=== PATIENT | female | born 1975 | race Caucasian/White ===

== ENCOUNTER 2022-05-31 14:48 | Observation (INO) | payer BC, SELFPAY ==
[2022-05-31] VITALS (20 sets, daily range): BP systolic 140–180; BP diastolic 77–97; PULSE 78–87; RESP 17–18; TEMP 37.1–37.4; O2SAT 95–100; BMI 30.4
--- NOTE | ~2022-05-31 | CT_ITS ---
EXAMINATION: CT abdomen pelvis w con DATE: 05/31/2022 16:38 INDICATION: RUQ Pain X 2 hrs, N/V TECHNIQUE: Computed tomography (CT) of the abdomen and pelvis was performed with 100 mL Omnipaque-350 intravenous contrast. Automated exposure control and iterative reconstruction technique were employe d. The dose-length product was 975.14 mGy-cm. COMPARISON: None. FINDINGS: Lower thorax: Unremarkable Liver: Enlarged. Diffusely fatty infiltrated. Biliary/Gallbladder: Gallbladder is normal. No bile duct dilation. Pancreas: No mass or duct dilation. Spleen: Normal. Adrenals:No mass. Kidneys: No suspicious mass or stone. Minimal bilateral ureterectasis. GI tract: No small or large bowel dilation. Appendicolith in the proximal appendix. The appendix is d ilated to 11 mm. Appendiceal wall is intact. Minimal periappendiceal inflammatory change. Mesentery/Peritoneum: No ascites, mass, or free air. Retroperitoneum: No mass. Pelvis: Mild bladder wall thickening, given the degree of distention. Small incidental bilateral ovar marely cysts. Normal uterus. Trace free pelvic fluid, in physiologic range. Soft Tissues: Soft tissues and body wall unremarkable. Bones: No acute osseous finding. IMPRESSION: CT findings likely represent early/mild acute appendicitis. Mild urinary bladder wall thickening and mild bilateral ureterectasis, may represent some degree of urinary retention. Correlate for findings of cystitis. Ascending infection is not excluded. Hepatomegaly and steatosis. Reviewed, dictated and finalized at location K. OMATIC INTERPRETER IMPRESSION: CT findings likely represent early/mild acute appendicitis. Mild urinary bladde r wall thickening and mild bilateral ureterectasis, may represent some degree o f urinary retention. Correlate for findings of cystitis. Ascending infection is not excluded. Hepatomegaly and steatosis.
[2022-05-31 15:37] LABS: Basophils Absolute Auto 0.1 K/mm3 (0.0-0.1); Basophils Percent Auto 0.5 % (0.2-1.2); Eosinophils Absolute Auto 0.1 K/mm3 (0-0.3); Eosinophils Percent Auto 0.4 % (0-4.4); Hematocrit 43.7 % (37.0-47.0); Hemoglobin 15.1 g/dL (12.0-15.0); Immature Granulocyte Absolute 0.06 K/mm3 (0.00-0.031); Immature Granulocyte Percent A 0.4 % (0-0.5); Lymphocytes Absolute Auto 1.49 K/mm3 (0.9-3.2); Lymphocytes Percent Auto 9.8 % (18.3-44.2); Mean Corpuscular HGB Conc 34.6 g/dl (32-36); Mean Corpuscular Hemoglobin 31.4 pg (26-34); Mean Corpuscular Volume 90.9 fl (80-100); Mean Platelet Volume 9.1 fl (7.4-10.4); Monocytes Absolute Auto 0.6 K/mm3 (0.1-0.6); Monocytes Percent Auto 3.7 % (2.6-8.5); Neutrophils Absolute Auto 12.9 K/mm3 (1.3-6.7); Neutrophils Percent Auto 85.2 % (45.5-73.1); Platelet Count Result 299 k/mm3 (150-375); Red Blood Count 4.81 M/mm3 (4.2-5.4); Red Cell Distribution Width 11.9 % (11.5-14.5); White Blood Count 15.1 K/mm3 (4.5-10.0)
[2022-05-31 15:40] LABS: Appearance Urine Clear (Clear); Bilirubin Urine Negative (Negative); Blood Urine 1+ (Negative); Color Urine Yellow (Yellow); Glucose Urine UA Negative (Negative); Ketones Urine 2+ mg/dL (Negative); Leukocyte Esterase Ur Negative LEU/UL (Negative); Nitrate Urine Negative (Negative); Protein Urine Negative (Negative); Urobilinogen Urine 0.2 mg/dL (<2.0)
--- NOTE | 2022-05-31 15:45 | ED.ABDPAIN ---
HPI - Abdominal Pain General Chief Complaint: Abdominal Pain <JOSH Simpson Last Filed: 05/31/22 17:45> Stated Complaint: abd pain <JOSH Simpson Last Filed: 05/31/22 17:45> Time Seen by Provider: 05/31/22 14:50 <JOSH Simpson Last Filed: 05/31/22 17:45> Source: patient <JOSH Simpson Last Filed: 05/31/22 17:45> Mode of arrival: ambulatory <JOSH Simpson Last Filed: 05/31/22 17:45> Limitations: no limitations <JOSH Simpson Last Filed: 05/31/22 17:45> History of Present Illness HPI narrative: Patient is a 46-year-old female who presents the ED with report of right sided abdominal pain. Patient reports that pain began 2 and half hours ago. She ate eggs and cheese this morning. She reports nausea, denies vomiting, diarrhea, constipation, urinary sx's. Last BM this am. Denies fever. She has not taken anything for pain prior to arrival. She has never had pain like this before. <JOSH Simpson Last Filed: 05/31/22 17:45> Related Data Allergies/Adverse Reactions: Allergies Allergy/AdvReac Type Severity Reaction Status Date / Time No Known Allergies Allergy Mild Verified 05/31/22 15:03 <JOSH Simpson Last Filed: 05/31/22 17:45> Review of Systems Review of Systems: CONSTITUTIONAL: Denies fever, chills, or sweats. CARDIOVASCULAR: Denies chest pain. RESPIRATORY: Denies cough or dyspnea. GASTROINTESTINAL: Reports R sided ABD pain, nausea. Denies constipation, vomiting, or diarrhea. GENITOURINARY: Denies dysuria or hematuria. <JOSH Simpson Last Filed: 05/31/22 17:45> All systems reviewed & are unremarkable except as noted in HPI and below <JOSH Simpson Last Filed: 05/31/22 17:45> [facility] Past Medical History Medical History: Medical History (Updated 05/31/22 @ 17:45 by Lesli Maguire PA-C) No pertinent past medical history <Lesli Maguire PA-C - Last Filed: 05/31/22 17:45> Surgical History Surgical History: Surgical History (Updated 05/31/22 @ 15:52 by Lesli Maguire PA-C) No pertinent past surgical history <Lesli Maguire PA-C - Last Filed: 05/31/22 17:45> Social History Social History: Social History (Updated 05/31/22 @ 15:52 by Lesli Maguire PA-C) Smoking status: Never smoker <Lesli Maguire PA-C - Last Filed: 05/31/22 17:45> Exam Narrative: GENERAL: Well appearing, obese, non-toxic, in no acute distress. HEAD: Normocephalic, atraumatic. NECK: Supple. No adenopathy, no masses. RESPIRATORY: Airway patent, respirations nonlabored. Clear to auscultation bilaterally, no rales, rhonchi, wheezing. CARDIOVASCULAR: Regular rate and rhythm without murmurs, rubs, or gallops. Peripheral pulses 2+ and equal bilaterally. ABDOMINAL: Soft, tenderness palpation throughout right sided abdomen, RLQ and RUQ, nondistended, no hepatosplenomegaly. Normoactive BS. MUSCULOSKELETAL: Moves all extremities. Strength/ROM intact without gross deformities. SKIN: Warm, dry, normal color. No rashes. NEURO: A&O X3. Speech clear. Cranial nerves II-XII grossly intact. Steady gait. No ataxic movements. PSYCHIATRIC: Appropriate mood and affect. Normal interaction. <Lesli Maguire PA-C - Last Filed: 05/31/22 17:45> Course EMBOSSOGRAPH OPERATOR/PA Physician Supervision For this patient encounter, I reviewed the EMBOSSOGRAPH OPERATOR or PA documentation, treatment plan, and medical decision making; and I had [id number] time with this patient. <Gautam Berry MD - Last Filed: 05/31/22 17:38> Consultations Consultation #1: Discussed case with Dr. Raul, general surgery, will admit. Alejandra. <Lesli Maguire PA-C - Last Filed: 05/31/22 17:45> Date: 05/31/22 <Lesli Maguire PA-C - Last Filed: 05/31/22 17:45> Vital Signs Vital signs: Vital Signs Temperature 37.1 C 05/31/22 15:01
[2022-05-31 15:47] LABS: Alanine Aminotransferase 50 U/L (6-35); Albumin Level 4.9 g/dL (3.5-5.1); Alkaline Phosphatase 90 U/L (38-126); Anion Gap 9 mmol/L (8-16); Aspartate Amino Transferase 48 U/L (14-36); Bilirubin,Total 0.8 mg/dL (0.2-1.3); Blood Urea Nitrogen 9 mg/dL (7-17); Calcium 9.7 mg/dL (8.4-10.2); Carbon Dioxide 28 mmol/L (22-30); Chloride 98 mmol/L (98-107); Estimated CRCL calculation 100 ml/min; Estimated Glomerular Filt Rate > 60; Glucose 111 mg/dL (65-110); Lipase 58 U/L (23-300); Potassium 3.7 mmol/L (3.4-5.0); Sodium 135 mmol/L (137-145)
[2022-05-31 15:47] LABS: Bacteria Urine Trace /hpf; Mucus Urine Rare /lpf; Squamous Epithelial Cell Urine Rare /hpf (Few); WBC Urine 0-3 /hpf
[2022-05-31 15:49] LABS: Add Urine Microscopic? YES
[2022-05-31] MEDS: ONDANSETRON INJ 4 MG/2 ML VIAL IV PUSH (15:52)
[2022-05-31] MEDS: SODIUM CHLORIDE 0.9% IV 1,000 ML 999 ML IV CONT ×2 (15:52→17:49)
[2022-05-31] MEDS: MORPHINE SULFATE (*CRX) 4 MG/ML INJ IV PUSH ×2 (15:52→20:14)
[2022-05-31] MEDS: HYDROmorphone HCL INJ (*CRX) 1 MG/ML SYR IV PUSH (17:50)
[2022-05-31 18:23] LABS: Influenza A QL RT-PCR Negative (Negative); Influenza B QL RT-PCR Negative (Negative); SARS-CoV-2 RNA PCR Negative
--- NOTE | 2022-05-31 20:00 | ADMGEN ---
This patient, yMa Kevin, was admitted to 3 [facility] Surg Room 315-01 at 1919. Patient/family oriented to hospital policies and general routines including ID bracelet, bed and alarms, visiting hours, pain management, procedures, bathroom and other care routines, personal items, smoking policy, room service/diet, and visiting hours. Information on how to activate the Rapid Response Team has been discussed. Patient/Family are encouraged to report perceived risks to care and to ask questions if they do not understand what they are told or what they should do.
--- NOTE | 2022-05-31 21:18 | PM.IMHP ---
H&P: HPI History of Present Illness Date/Time: 05/31/22 21:18 Chief Complaint: abdominal pain Narrative: Patient is a 46 yo woman who began having right sided abdominal pain about noon 05/31/22. No fever or emesis. Pain is severe and patient came to ER. She was noted to have leukocytosis and right sided abdominal tenderness. CT scan showed acute appendicitis with appendicolith. She is admitted now for treatment of appendicitis. Review of Systems Review of Systems: All systems reviewed & are unremarkable except as noted in HPI and below (HPI and those items noted below. ) Constitutional: Constitutional: Denies chills and Denies fever(s) Cardiovascular: Cardiovascular: Denies chest pain, Denies diaphoresis, Denies dyspnea and Denies paroxysmal nocturnal dyspnea Respiratory: Respiratory: Denies chest congestion, Denies cough and Denies dyspnea Integumentary/Breasts: Skin/Breast: Denies lesions and Denies rash PMFSH Past Medical History Medical History No pertinent past medical history Surgical History Surgical History No pertinent past surgical history Social History Social History Smoking status: Never smoker Alcohol intake: current Drinks per week: 5 Substance use: never Lack of Transportation: No Lack of Food: Never True Current Housing: I Have Housing Concerned About Future Housing: No Difficulty Paying Gas/Electric Bills: No Difficulty Paying for Meds: No Currently Unemployed: No Education: Master's Degree or Higher Difficulty w/ Childcare or Family Care: No Spiritual care concerns: No Meds Home Medications and Allergies Home Medications Medication Instructions Recorded Confirmed Type No Home Medications 05/31/22 05/31/22 History Allergies Allergy/AdvReac Type Severity Reaction Status Date / Time No Known Allergies Allergy Mild Verified 05/31/22 15:03 Vital Signs Vital Signs - 24 hr 05/31/22 15:01 05/31/22 15:51 05/31/22 15:57 Temperature 37.1 C Pulse Rate 81 Respiratory Rate 18 Blood Pressure 180/97 H 147/77 H Pulse Oximetry 99 98 99 05/31/22 15:58 05/31/22 16:00 05/31/22 16:01 Temperature Pulse Rate Respiratory Rate Blood Pressure 148/84 H Pulse Oximetry 100 100 100 05/31/22 16:16 05/31/22 16:18 05/31/22 17:01 Temperature Pulse Rate Respiratory Rate Blood Pressure 148/85 H 147/86 H Pulse Oximetry 100 99 99 05/31/22 17:16 05/31/22 17:17 05/31/22 17:31 Temperature Pulse Rate Respiratory Rate Blood Pressure 144/79 H 144/81 H Pulse Oximetry 99 98 97 05/31/22 17:32 05/31/22 18:06 05/31/22 18:15 Temperature Pulse Rate Respiratory Rate Blood Pressure Pulse Oximetry 97 97 95 05/31/22 18:16 05/31/22 18:30 05/31/22 18:31 Temperature Pulse Rate Respiratory Rate Blood Pressure 141/82 H 146/83 H Pulse Oximetry 96 99 98 05/31/22 19:17 Temperature Pulse Rate 83 Respiratory Rate 18 Blood Pressure 140/81 Pulse Oximetry 96 Exam Const: General: comfortable, no acute distress, alert and awake Nutritional Appearance: average body habitus Orientation/consciousness: patient oriented x3 HENMT: Head: normocephalic and atraumatic Mouth: Yes Normal oral and palatal mucosa present Eyes: Conjunctivae: conjunctivae normal Pupils: Equal, round and reactive pupils present EOM: EOMs intact bilaterally Neck: Neck: normal visual inspection, no lymphadenopathy and nontender Resp: Effort & Inspection: normal respiratory effort Auscultation: clear to auscultation bilaterally Cardio: Rate: regular rate Rhythm: regular rhythm Heart sounds: no gallops, no murmurs and no rubs GI: Inspection: normal to inspection and non-distended GI Palp: Yes Soft to palpation, Yes Tenderness to palpation present (GI) (RLQ
[2022-06-01] MEDS: MORPHINE SULFATE (*CRX) 4 MG/ML INJ IV PUSH ×3 (00:04→06:35)
[2022-06-01 06:00] VITALS: BP 142/71; PULSE 99; RESP 19; TEMP 36.6; O2SAT 96
--- NOTE | 2022-06-01 07:53 | WPDHPUPDATE1 ---
History and Physical Update Update Date/Time: 06/01/22 07:53 History and Physical has been reviewed, including an updated exam of the patient. There are NO changes in the patient's condition. Risks, benefits, and alternatives have been discussed and questions answered. Patient agrees to proceed with procedure.
--- NOTE | 2022-06-01 08:14 | PC.NURSE ---
pt. left floor for pre-op at 08:05 via bed.
--- NOTE | 2022-06-01 08:28 | WPDANESEPPF ---
Anes - Initial Pre Proc Eval Procedure: Operation Date: 06/01/22 08:30 Proposed Procedures p Laparoscopic Appendectomy - Steve Carter MD Date/Time: 06/01/22 08:28 Surgeon: Steve Carter MD Pre Op Diagnosis: Acute Appendicitis Patient Data Age: 46 Gender: F Height: 1.6 m Weight: 78 kg Last Vital Signs Temp 36.6 C 06/01/22 06:00 Pulse 99 06/01/22 06:00 Resp 19 06/01/22 06:00 BP 142/71 H 06/01/22 06:00 Pulse Ox 96 06/01/22 06:00 O2 Del Method Room Air 05/31/22 20:00 Allergies Allergy/AdvReac Type Severity Reaction Status Date / Time No Known Allergies Allergy Mild Verified 05/31/22 15:03 Home Medications Medication Instructions Recorded Confirmed Type No Home Medications 05/31/22 05/31/22 History Laboratory Tests 05/31/22 05/31/22 05/31/22 15:17 15:17 15:30 WBC 15.1 K/mm3 H K/mm3 (4.5-10.0) RBC 4.81 M/mm3 M/mm3 (4.2-5.4) Hgb 15.1 g/dL H g/dL (12.0-15.0) Hct 43.7 % % (37.0-47.0) MCV 90.9 fl fl (80-100) MCH 31.4 pg pg (26-34) MCHC 34.6 g/dl g/dl (32-36) RDW 11.9 % % (11.5-14.5) Plt Count 299 k/mm3 k/mm3 (150-375) MPV 9.1 fl fl (7.4-10.4) Immature Gran % (Auto) 0.4 % % (0-0.5) Neut % (Auto) 85.2 % H % (45.5-73.1) Lymph % (Auto) 9.8 % L % (18.3-44.2) [place] % (Auto) 3.7 % % (2.6-8.5) Eos % (Auto) 0.4 % % (0-4.4) Baso % (Auto) 0.5 % % (0.2-1.2) Lymph # (Auto) 1.49 K/mm3 K/mm3 (0.9-3.2) [place] # (Auto) 0.6 K/mm3 K/mm3 (0.1-0.6) Eos # (Auto) 0.1 K/mm3 K/mm3 (0-0.3) Baso # (Auto) 0.1 K/mm3 K/mm3 (0.0-0.1) Abs Immat Gran (auto) 0.06 K/mm3 H K/mm3 (0.00-0.031) Absolute Neuts (auto) 12.9 K/mm3 H K/mm3 (1.3-6.7) Absolute Nucleated RBC 0.0 K/mm3 K/mm3 (0.0-0.012) Nucleated RBC % 0.0 % % (0.0-0.2) Sodium 135 mmol/L L mmol/L (137-145) Potassium 3.7 mmol/L mmol/L (3.4-5.0) Chloride 98 mmol/L mmol/L (98-107) Carbon Dioxide 28 mmol/L mmol/L (22-30) Anion Gap 9 mmol/L mmol/L (8-16) BUN 9 mg/dL mg/dL (7-17) Creatinine 0.60 mg/dL L mg/dL (0.7-1.0) Estim Creat Clear Calc 100 ml/min ml/min Estimated GFR > 60 (59 - ) Glucose 111 mg/dL H mg/dL (65-110) Calcium 9.7 mg/dL mg/dL (8.4-10.2) Total Bilirubin 0.8 mg/dL mg/dL (0.2-1.3) AST 48 U/L H U/L (14-36) ALT 50 U/L H U/L (6-35) Alkaline Phosphatase 90 U/L U/L (38-126) Total Protein 8.0 g/dL g/dL (6.3-8.2) Albumin 4.9 g/dL g/dL (3.5-5.1) Lipase 58 U/L U/L (23-300) Urine Color Yellow (Yellow) Urine Appearance Clear (Clear) Urine pH 7.0 (5.0-9.0) Ur Specific [place] 1.020 (1.001-1.035) Urine Protein Negative mg/dL mg/dL (Negative) Urine Glucose (UA) Negative mg/dL mg/dL (Negative) Urine Ketones 2+ mg/dL H mg/dL (Negative) Ur Blood (Man) 1+ H (Negative) Urine Nitrate Negative (Negative) Urine Bilirubin Negative (Negative) Urine Urobilinogen 0.2 mg/dL mg/dL (<2.0) Leukocyte Esterase Rfl Negative JAMES/UL JAMES/UL (Negative) Urine RBC 3-5 /hpf H /hpf (0-2) Urine WBC 0-3 /hpf /hpf Ur Squamous Epith Cells Rare /hpf /hpf (Few) Urine Bacteria Trace /hpf /hpf Urine Mucus Rare /lpf /lpf Influenza A (RT-PCR) Influenza B (RT-PCR) SARS-CoV-2 RNA (RT-PCR) 05/31/22 17:37 WBC RBC Hgb Hct MCV MCH MCHC RDW Plt Count MPV Immature Gran % (Auto) Neut % (Aut
[2022-06-01] MEDS: LIDO 1%/EPINEPHRINE/PF 1:200,000 30 ML VIAL XX (09:32)
[2022-06-01 09:40] VITALS: BP 110/53; PULSE 81; RESP 15; TEMP 37.2; O2SAT 95
[2022-06-01] MEDS: LACTATED RINGERS 1,000 ML 30 ML IV CONT (09:40)
[2022-06-01 09:55] VITALS: BP 110/53; PULSE 81; RESP 14; O2SAT 95
[2022-06-01 10:10] VITALS: BP 110/53; PULSE 92; RESP 12; O2SAT 96
--- NOTE | 2022-06-01 10:15 | P.OP_ITS ---
Procedure Note - Detailed Date of Procedure 06/01/22 Pre-op Diagnosis Acute Appendicitis Post-op Diagnosis Other (Gangrenous acute appendicitis) Procedure Performed Laparoscopic appendectomy Surgeon Steve Carter MD [employer] Francia CALLAWAY Anesthesia General and Local (1% lidocaine with epinephrine) Indications Patient is a 46-year-old woman who about yesterday noon started having some right-sided abdominal pain. The pain was severe. She came to the emergency room was found to have right-sided tenderness with guarding. Her white blood cell count was elevated. CT scan showed acute appendicitis with appendicolith. She was treated with IV antibiotics and observed. Her pain persisted. She now has focal right lower quadrant tenderness with guarding. She is taken to surgery now for laparoscopic appendectomy Findings Gangrenous acute appendicitis Description of Procedure Patient was taken to surgery and induced into general anesthesia. The abdomen is prepped and draped. Trocars were placed in the usual fashion using applied Medical optical trocars and local anesthetic. Patient was placed in Trendelenburg with the right-side elevated. The appendix was somewhat re trocecal and there was quite a bit of surrounding inflammation. We did blunt and sharp dissection and eventually mobilized the cecum to some degree so that the appendix was able to be found. The appendix was then gently mobilized. The mesoappendix was cauterized and dissected. The appendiceal artery was thoroughly cauterized and divided. Eventually we divided the mesoappendix and the appendix was skeletonized at its base. It was ligated with a Vicryl endoloop at its base. I amputated the appendix just above the ligature. The mucosa of the appendiceal stump was cauterized. Appendix was placed immediately in an Endo-Catch bag retrieved through the 10 11 left lower quadrant trocar site. We then reviewed the areas of dissection. Any residual blood or clot was suctioned away. There was no sign of bleeding or other issues. We evacuated CO2 and removed the trocar sleeves. Skin wounds were closed with subcuticular 4-0 Monocryl skin suture. The wounds were dressed with Exofin surgical adhesive. Patient was awakened and taken to recovery in good condition. Sponge needle counts were correct x2. Estimated Blood Loss -10 Urine Output 550 Drains No Packing No Pathology Yes (Appendix) Complications No immediate complications Condition Stable Disposition PACU [facility] Billing Surgery - Charge Forward: Surgery Billing (Laparoscopic appendectomy)
[2022-06-01] MEDS: fentaNYL CITRATE INJ (*CRX) 100 MCG/2 ML VIAL 25 MCG IV PUSH ×3 (10:20→10:27)
[2022-06-01] MEDS: ONDANSETRON INJ 4 MG/2 ML VIAL IV PUSH (10:20)
--- NOTE | 2022-06-01 10:20 | PM.DS ---
DS: Admitting Diagnosis Discharge Date 06/01/2022 Admitting Diagnosis Acute appendicitis DS: Discharge Diagnosis Discharge Diagnosis (1) Acute gangrenous appendicitis: Code(s): K35.891 - Other acute appendicitis without perforation, with gangrene Status: Acute Assessment and Plan: Patient underwent laparoscopic appendectomy 06/01/[address] Carter DS: Summary Hospital Course Hospital Course: Patient came to the emergency room in the evening of 12 3. She was having right-sided abdominal pain and workup showed acute appendicitis. She was started on antibiotics and observed in the hospital. Her pain was persistent and became focal in the right lower quadrant. She was taken to surgery on 06/01/2022. She was found to have gangrenous acute appendicitis and underwent laparoscopic appendectomy. She did well after period of observation was able to be discharged. Status at Discharge Functional status at discharge: independent ambulation Overall status at discharge: patient is progressing back to baseline Time Spent with Patient Time attestation: Total time spent providing and/or coordinating discharge services: Time spent: Less than 30 minutes DS: Data Data Completed and Pending Pending studies at discharge: Pending at discharge 06/01/22 09:00 Surgical [PTH] Routine Labs on day of discharge: Labs from last 24 hours 05/31/22 05/31/22 05/31/22 17:37 15:30 15:17 WBC RBC Hgb Hct MCV MCH MCHC RDW Plt Count MPV Immature Gran % (Auto) Neut % (Auto) Lymph % (Auto) [place] % (Auto) Eos % (Auto) Baso % (Auto) Lymph # (Auto) [place] # (Auto) Eos # (Auto) Baso # (Auto) Abs Immat Gran (auto) Absolute Neuts (auto) Absolute Nucleated RBC Nucleated RBC % Sodium 135 L Potassium 3.7 Chloride 98 Carbon Dioxide 28 Anion Gap 9 BUN 9 Creatinine 0.60 L Estim Creat Clear Calc 100 Estimated GFR > 60 Glucose 111 H Calcium 9.7 Total Bilirubin 0.8 AST 48 H ALT 50 H Alkaline Phosphatase 90 Total Protein 8.0 Albumin 4.9 Lipase 58 Urine Color Yellow Urine Appearance Clear Urine pH 7.0 Ur Specific [place] 1.020 Urine Protein Negative Urine Glucose (UA) Negative Urine Ketones 2+ H Ur Blood (Man) 1+ H Urine Nitrate Negative Urine Bilirubin Negative Urine Urobilinogen 0.2 Leukocyte Esterase Rfl Negative Urine RBC 3-5 H Urine WBC 0-3 Ur Squamous Epith Cells Rare Urine Bacteria Trace Urine Mucus Rare Influenza A (RT-PCR) Negative Influenza B (RT-PCR) Negative SARS-CoV-2 RNA (RT-PCR) Negative 05/31/22 15:17 WBC 15.1 H RBC 4.81 Hgb 15.1 H Hct 43.7 MCV 90.9 MCH 31.4 MCHC 34.6 RDW 11.9 Plt Count 299 MPV 9.1 Immature Gran % (Auto) 0.4 Neut % (Auto) 85.2 H Lymph % (Auto) 9.8 L [place] % (Auto) 3.7 Eos % (Auto) 0.4 Baso % (Auto) 0.5 Lymph # (Auto) 1.49 [place] # (Auto) 0.6 Eos # (Auto) 0.1 Baso # (Auto) 0.1 Abs Immat Gran (auto) 0.06 H Absolute Neuts (auto) 12.9 H Absolute Nucleated RBC 0.0 Nucleated RBC % 0.0 Sodium Potassium Chloride Carbon Dioxide Anion Gap BUN Creatinine Estim Creat Clear Calc Estimated GFR Glucose Calcium Total Bilirubin AST ALT Alkaline Phosphatase Total Protein Albumin Lipase Urine Color Urine Appearance Urine pH Ur Specific [place] Urine Protein Urine Glucose (UA) Urine Ketones Ur Blood (Man) Urine Nitrate Urine Bilirubin Urine Urobilinogen Leukocyte Esterase Rfl Urine RBC Urine WBC Ur Squamous Epith Cells Urine Bacteria Urine Mucus Influenza A (RT-PCR) Influenza B (RT-PCR) SARS-CoV-2 RNA (RT-PCR) Discharge Plan Discharge Attending physician on discharge: Steve Carter Discharging Clinician: Steve Carter Anticipated Discharge Date/Time: 06/01/22 16:00 Patient Disposition: Home
[2022-06-01 10:25] VITALS: BP 110/53; PULSE 96; RESP 20; O2SAT 96
[2022-06-01 10:40] VITALS: BP 106/67; PULSE 79; RESP 18; O2SAT 97
== END 2022-06-01 14:31 | disposition home or self-care (01) ==
LOC: ANHED 17:45 → ANH3MEDSUR 18:52
PROVIDERS: Physician Assistant; Admitting Provider Surgery; Emergency Provider Emergency Medicine; Visit Provider Surgery
PROC: 0DTJ4ZZ Resection of Appendix, Percutaneous Endoscopic Approach (ICD-10-PCS; CPT 44970; principal; 2022-06-01 08:30)
DX: K35.80 Unspecified acute appendicitis (principal); N13.4 Hydroureter; K76.0 Fatty (change of) liver, not elsewhere classified; R16.0 Hepatomegaly, not elsewhere classified; R03.0 Elevated blood-pressure reading, without diagnosis of hypertension; D72.829 Elevated white blood cell count, unspecified; R74.01 Elevation of levels of liver transaminase levels; E66.9 Obesity, unspecified; Z68.30 Body mass index [BMI] 30.0-30.9, adult; F10.90 Alcohol use, unspecified, uncomplicated; Z20.822 Contact with and (suspected) exposure to COVID-19
CPT/HCPCS: 44970; 36415; 74177; 80053; 81001; 81025; 83690; 85025; 87636; 88304; 96361; 96365; 96366; 96375; 96376; 99285; G0378; J0330; J1100; J1170; J2250; J2270; J2405; J2543; J2704; J2710; J3010; J7030; J7120; Q9967